=== PATIENT | female | born 1970 | race Caucasian/White ===

== ENCOUNTER → 2024-05-06 15:18 | Outpatient (CLI) | payer OTHER, SELFPAY ==
--- NOTE | 2024-05-06 | DI.MRI.S_ITS ---
PROCEDURE: MR ANKLE LT WO CON INDICATIONS: Pain in left ankle and joints of left foot TECHNIQUE: Noncontrast sagittal T1 spin echo and T2 fast spin echo with fat saturation, axial proton density fast spin echo and T2 fast spin echo with fat saturation, coronal T1 spin echo and T2 fast spin echo with fat saturation through the ankle/hindfoot. COMPARISON: [facility], CR, XR ANKLE 3+ VIEWS RIGHT, 04/26/2024, 14:47. FINDINGS: Image quality: Excellent. Bones and joints: No marrow edema. No acute fracture or dislocation. Old healed fracture involving posterior malleolus is seen. No hindfoot coalitions. No osteochondral injuries of the talar dome. Small amount of tibiotalar joint effusion is seen, no loose bodies. Medial structures: The posterior tibialis, flexor digitorum longus, and flexor hallucis longus tendons are intact. The posterior tibial neurovascular bundle appears normal within the tarsal tunnel, without extrinsic mass effect. The deltoid ligament and spring ligament are mildly thickened. Lateral structures: The anterior talofibular ligament appears thickened with intrasubstance T2 hyperintense signal. The calcaneofibular, and posterior talofibular ligaments appear intact. More superiorly, the anterior and posterior tibiofibular ligaments appear intact, as is the intermalleolar ligament. The tibiofibular syndesmosis is normal in width at 2 mm or less. The peroneus longus and brevis tendons are thickened with small amount of fluid distending tendon sheath at the level of lateral malleolus tip extending to their distal insertions. Intrasubstance T2 hyperintense signal within peroneus longus tendon along plantar aspect of midfoot is also noted. The sinus tarsi demonstrates normal fatty signal, without edema, fibrosis, or cyst formation. Visualized sinus tarsi components (cervical ligament, interosseous talocalcaneal ligament, roots of the inferior extensor retinaculum) appear normal. Anterior structures: The tibialis anterior, extensor hallucis longus, and extensor digitorum longus tendons appear intact. The dorsal talonavicular ligament appears intact. Posterior and plantar structures: Lobulated thickening of mid to distal Achilles tendon extending to its posterior calcaneal insertion with mild adjacent soft tissue edema. No Achilles tendon rupture. Medial and lateral bands of the plantar fascia are of normal thickness. No abductor digiti quinti muscle atrophy to suggest Gonzalez neuropathy. IMPRESSION: 1. Old healed posterior malleolus fracture. No acute ankle fracture or dislocation. No osteochondral injuries of talar dome. Small joint effusion, no loose bodies. 2. Low-grade medial ankle ligament sprain. 3. Low to moderate grade partial-thickness tear involving ATFL. No full-thickness ankle ligament rupture. 4. Low to moderate grade tenosynovitis and intrasubstance partial-thickness tear involving peroneus longus and brevis tendons as described above. 5. Lobulated appearance of distal Achilles tendon extending to its posterior calcaneal insertion and surrounding soft tissue edema suggestive of tendinitis. No full-thickness Achilles tendon rupture. Dictated by: Juan Manuel Danielson M.D. on 05/06/2024 at 17:58 Approved by: Juan Manuel Danielson M.D. on 05/06/2024 at 18:08
== END ==
PROVIDERS: PCP Family Medicine; Referring Provider Family Medicine; Visit Provider Family Medicine
DX: S93.492A Sprain of other ligament of left ankle, initial encounter (principal); M25.572 Pain in left ankle and joints of left foot; M25.472 Effusion, left ankle; M65.872 Other synovitis and tenosynovitis, left ankle and foot; Z87.81 Personal history of (healed) traumatic fracture
CPT/HCPCS: 73721

== ENCOUNTER → 2024-05-07 16:47 | Outpatient (CLI) | payer OTHER, SELFPAY ==
--- NOTE | 2024-05-07 16:48 | DI.MRI.S_ITS ---
PROCEDURE: MR ANKLE RT WO CON INDICATIONS: RT ANKLE SPRAIN,PERONEAL NERVE INJURY TECHNIQUE: Noncontrast sagittal T1 spin echo and T2 fast spin echo with fat saturation, axial proton density fast spin echo and T2 fast spin echo with fat saturation, coronal T1 spin echo and T2 fast spin echo with fat saturation through the ankle/hindfoot. COMPARISON: [facility], CR, XR ANKLE 3+ VIEWS RIGHT, 04/26/2024, 14:47. [facility], MR, MR ANKLE LT WO CON, 05/06/2024, 15:32. FINDINGS: Image quality: Excellent. Bones and joints: Mild edema involving mid to distal portion of calcaneus without discrete fracture line. No other area of abnormal marrow signal. No fracture or dislocation. No hindfoot coalitions. No osteochondral injuries of the talar dome. Small to moderate tibiotalar joint effusion, no loose bodies. Medial structures: The posterior tibialis tendon is mildly thickened with small amount of fluid distending tendon sheath at the level of mid to distal talus and talonavicular joint. The flexor digitorum longus, and flexor hallucis longus tendons are intact. The posterior tibial neurovascular bundle appears normal within the tarsal tunnel, without extrinsic mass effect. The deltoid ligament and spring ligament are thickened. Intrasubstance T2 hyperintense signal involving spring ligament near its calcaneal insertion is seen. Lateral structures: The anterior talofibular, calcaneofibular, and posterior talofibular ligaments appear mildly thickened. More superiorly, the anterior and posterior tibiofibular ligaments appear intact, as is the intermalleolar ligament. The tibiofibular syndesmosis is normal in width at 2 mm or less. The peroneus longus and brevis tendons are mildly thickened with small amount of fluid distending tendon sheath along mid to distal portion of calcaneus extending to their distal insertions. The sinus tarsi demonstrates normal fatty signal, without edema, fibrosis, or cyst formation. Visualized sinus tarsi components (cervical ligament, interosseous talocalcaneal ligament, roots of the inferior extensor retinaculum) appear normal. Anterior structures: The tibialis anterior, extensor hallucis longus, and extensor digitorum longus tendons appear intact. The dorsal talonavicular ligament appears intact. Posterior and plantar structures: Achilles tendon is thickened at its posterior calcaneal insertion. No Achilles tendon rupture. Medial and lateral bands of the plantar fascia are of normal thickness. No abductor digiti quinti muscle atrophy to suggest Gonzalez neuropathy. IMPRESSION: 1. Nonspecific marrow edema involving mid to distal calcaneus without discrete fracture line likely represent stress related changes versus contusion. No other area of abnormal marrow signal. No osteochondral injuries of talar dome. Small to moderate amount of joint effusion, no loose bodies. 2. Low-grade tenosynovitis involving posterior tibialis tendon near its distal insertion. 3. Low-grade tenosynovitis involving peroneus longus and brevis tendons at the level of mid to distal calcaneus extending to their distal insertions. 4. Low-grade sprain/partial-thickness tear involving medial ankle ligaments. Low-grade sprain also seen involving anterior and posterior talofibular ligaments and calcaneofibular ligament. No full-thickness ankle ligament rupture. 5. Mild distal Achilles tendinosis. No Achilles tendon rupture. Dictated by: Juan Manuel Danielson M.D. on 05/08/2024 at 10:11 Approved by: Juan Manuel Danielson M.D. on 05/08/2024 at 10:49
== END ==
LOC: MRI 16:48
PROVIDERS: PCP Family Medicine; Referring Provider Family Medicine; Visit Provider Family Medicine
DX: S93.491A Sprain of other ligament of right ankle, initial encounter (principal); S93.411A Sprain of calcaneofibular ligament of right ankle, initial encounter; S94.2 Injury of deep peroneal nerve at ankle and foot level; M65.871 Other synovitis and tenosynovitis, right ankle and foot; X58.XXXA Exposure to other specified factors, initial encounter
CPT/HCPCS: 73721

== ENCOUNTER → 2024-06-04 13:50 | Outpatient (ROUT) | payer OTHER, SELFPAY ==
[2024-06-04 13:58] LABS: Add Manual Diff / Slide Review NO; Basophils Absolute Auto 0 /uL (0-100); Basophils Percent Auto 0.5 % (0-2); Eosinophils Absolute Auto 100 /uL (0-450); Hematocrit 34.7 % (36-46); Lymphocytes Absolute Auto 1600 /uL (1100-4500); Lymphocytes Percent Auto 30.3 % (25-40); Mean Corpuscular HGB Conc 34.6 % (30-36); Mean Corpuscular Hemoglobin 30.9 PG (26-34); Mean Corpuscular Volume 89.2 fL (80-100); Monocytes Absolute Auto 300 /uL (0-900); Monocytes Percent Auto 6.3 % (3-14); Neutrophils Absolute Auto 3300 /uL (1500-7000); Neutrophils Percent Auto 60.9 % (50-75); Platelet Count 261 X10^3/uL (150-400); Red Blood Cell Count 3.89 X10^6/uL (4.0-5.2); Red Cell Distribution Width 13.4 % (11.6-14.8); White Blood Cell Count 5.4 X10^3/uL (4.5-11.0)
[2024-06-04 14:12] LABS: Alanine Aminotransferase 20 IU/L (<35); Albumin 4.6 g/dL (3.5-5.0); Albumin Globulin Ratio 1.7 (1.0-2.8); Alkaline Phosphatase 79 U/L (38-126); Aspartate Aminotransferase 26 IU/L (14-36); BUN Creatinine Ratio 16.5 (6-22); Bilirubin Total 0.6 mg/dL (0.2-1.3); Blood Urea Nitrogen 17 mg/dL (7-17); Calcium 9.5 mg/dL (8.4-10.2); Carbon Dioxide 23 mmol/L (22-32); Chloride 105 mmol/L (98-107); Estimated Glomerular Filt Rate > 60 mL/min (>60); Globulin 2.7 g/dL (1.7-4.1); Glucose 87 mg/dL (70-100); HEMOLYSIS < 15 (0-50); Sodium 139 mmol/L (137-145); Total Protein 7.3 g/dL (6.3-8.2)
[2024-06-04 14:17] LABS: Iron 62 ug/dL (37-170)
[2024-06-04 14:45] LABS: Thyroid Stimulating Hormone 2.43 uIU/mL (0.47-4.68)
== END ==
PROVIDERS: PCP Family Medicine; Visit Provider Family Medicine
DX: Z00.00 Encounter for general adult medical examination without abnormal findings (principal); I47.10 Supraventricular tachycardia, unspecified; E61.1 Iron deficiency; E55.9 Vitamin D deficiency, unspecified
CPT/HCPCS: 36415; 80053; 80299; 82306; 83540; 84443; 85025

== ENCOUNTER → 2024-06-21 08:17 | Outpatient (CLI) | payer OTHER, SELFPAY ==
--- NOTE | 2024-06-21 | DI.RAD.S_ITS ---
PROCEDURE: XR HAND LT MIN 3V INDICATIONS: LEFT HAND PAIN TECHNIQUE: 3 views of the hand(s) acquired. COMPARISON: None. FINDINGS: Bones: No fractures or dislocations. Carpal bones are normally aligned. No suspicious bony lesions. Minimal scattered arthritic IP narrowing. Soft tissues: Punctate hyperdensities overlying the proximal aspect of the 2nd digit possibly dystrophic soft tissue calcifications. IMPRESSION: No visualized acute fracture or dislocation. However, if clinical concern and/or pain persist, short interval imaging followup in 7-10 days is recommended, as occult injury cannot be definitively excluded. Dictated by: Ellie Pearson M.D. on 06/21/2024 at 13:44 Approved by: Ellie Pearson M.D. on 06/21/2024 at 13:45
--- NOTE | 2024-06-21 | DI.RAD.S_ITS ---
PROCEDURE: XR WRIST LT MIN 3V INDICATIONS: LEFT WRIST PAIN TECHNIQUE: 4 views of the wrist were acquired. COMPARISON: None. FINDINGS: Bones: No fractures or dislocations. No suspicious bony lesions. Soft tissues: No suspicious soft tissue calcifications. IMPRESSION: No visualized acute fracture or dislocation. However, if clinical concern and/or pain persist, short interval imaging followup in 7-10 days is recommended, as occult injury cannot be definitively excluded. Dictated by: Ellie Pearson M.D. on 06/21/2024 at 13:44 Approved by: Ellie Pearson M.D. on 06/21/2024 at 13:44
== END ==
PROVIDERS: PCP Family Medicine; Referring Provider Family Medicine; Visit Provider Family Medicine
DX: M79.642 Pain in left hand (principal)
CPT/HCPCS: 73110; 73130

== ENCOUNTER → 2024-07-04 15:33 | Outpatient (CLI) | payer OTHER, SELFPAY ==
--- NOTE | 2024-07-04 15:36 | DI.MRI.S_ITS ---
PROCEDURE: MR WRIST LT WO CON INDICATIONS: ULNAR WRIST/HAND PAIN AFTER FALL.. TECHNIQUE: Noncontrast coronal proton density fast spin echo and T2 fast spin echo with fat saturation; coronal 3-D gradient echo, axial T1 spin echo and T2 fast spin echo with fat saturation, sagittal T1 spin echo through the wrist. COMPARISON: [facility], CR, XR WRIST LT MIN 3V, 06/21/2024, 8:29. [facility], CR, XR HAND LT MIN 3V, 06/21/2024, 8:29. FINDINGS: Image quality: Excellent. Bones: Mild subchondral cyst formation is present at the the lunate body (3/6). The bone marrow signal is normal. There is no evidence of fracture or carpal bone osteonecrosis. There is a type 1 lunate. Joints: There is no significant osteoarthritis. There is a small amount of fluid at the distal radioulnar joint (3/5). There is no significant fluid within the radiocarpal joint or midcarpal space. Intrinsic Ligaments: The scapholunate and lunotriquetral intervals are normal. The intrinsic scapholunate and lunotriquetral ligaments are normal. Extrinsic Ligaments: The extrinsic ligaments are normal. Triangular Fibrocartilage Complex: There may be a minimal central, irregular perforation at the articular disc (3/7). The triangular fibrocartilage disc proper, distal dorsal and volar radioulnar ligaments, ulnar collateral ligament/meniscal homologue, ulnotriquetral, and ulnolunate ligaments are otherwise normal. Tendons: The flexor and extensor tendons are normal. Nerves: The median and ulnar nerves appear normal in size and signal. Other: Subcutaneous and intramuscular edema is present around the base of the 4th and 5th metacarpals, likely secondary to partial disruptions of the dorsal and volar metacarpal ligaments (3/6; 8/7). IMPRESSION: 1. Possible perforating tear at the articular disc of the triangular fibrocartilage, with a small amount of fluid at the distal radioulnar joint. If necessary, an MR wrist arthrogram could be performed for confirmation. 2. Likely traumatic, partial disruption of the dorsal and volar metacarpal ligaments between the 4th and 5th metacarpals with adjacent mild muscle strains. Please correlate with physical exam for joint laxity and possible higher grade injury. Dictated by: Nate Garduno M.D. on 07/04/2024 at 16:54 Approved by: Nate Garduno M.D. on 07/04/2024 at 17:25
== END ==
LOC: MRI 15:35
PROVIDERS: PCP Family Medicine; Referring Provider Family Medicine; Visit Provider Family Medicine
DX: M79.642 Pain in left hand (principal)
CPT/HCPCS: 73221

== ENCOUNTER → 2024-07-06 15:30 | Outpatient (CLI) | payer OTHER, SELFPAY ==
--- NOTE | 2024-07-06 15:32 | DI.MRI.S_ITS ---
PROCEDURE: MR HAND LT WO CON INDICATIONS: HAND PAIN AFTER FALL TECHNIQUE: Noncontrast coronal T1 spin echo and T2 fast spin echo with fat saturation, axial proton density fast spin echo and T2 fast spin echo with fat saturation, sagittal T1 spin echo and STIR through the hand and fingers. COMPARISON: [facility], CR, XR WRIST LT MIN 3V, 06/21/2024, 8:29. [facility], MR, MR WRIST LT WO CON, 07/04/2024, 16:19. [facility], CR, XR HAND LT MIN 3V, 06/21/2024, 8:29. FINDINGS: Image quality: Excellent. Bones: Diffuse marrow edema of the 1st distal phalanx, without definite fracture line, likely representing marrow contusion given history of trauma. Marrow edema with subchondral cystic changes at the 2nd proximal phalangeal head, favoring degenerative. No acute fracture. Interphalangeal joint(s): The accessory and proper collateral ligaments appear intact. The volar plate demonstrates normal morphology. The extensor central slips appear intact on sagittal images. Metacarpophalangeal joint(s): The accessory and proper collateral ligaments appear intact, as well as the volar plate and adjacent deep transverse metacarpal ligaments. The sagittal bands of the extensor vargas appear normal. Extensor apparatus: The central slips insert normally on the middle phalangeal base. The conjoint and terminal tendons insert normally on the distal phalangeal bases. More proximal portions of the extensor tendons also appear normal. Flexor apparatus: The flexor digitorum superficialis and profundus tendons both appear intact. All annular and cruciform pulleys appear intact, without adjacent soft tissue edema. Soft tissues: Soft tissue edema between the 4th and 5th metacarpal base, nonspecific. IMPRESSION: 1. Diffuse marrow edema of the 1st distal phalanx, likely representing marrow contusion. 2. Marrow edema with subchondral cystic changes at the 2nd proximal phalangeal head, favoring degenerative. 3. Soft tissue edema between the 4th and 5th metacarpal base, nonspecific. Dictated by: Saira Zabala M.D. on 07/08/2024 at 14:01 Approved by: Saira Zabala M.D. on 07/08/2024 at 14:11
== END ==
LOC: MRI 15:31
PROVIDERS: PCP Family Medicine; Referring Provider Family Medicine; Visit Provider Family Medicine
DX: M79.642 Pain in left hand (principal); M25.532 Pain in left wrist; M25.442 Effusion, left hand
CPT/HCPCS: 73218

== ENCOUNTER → 2025-07-17 14:30 | Outpatient (ROUT) | payer OTHER, SELFPAY ==
[2025-07-17 14:40] LABS: Add Manual Diff / Slide Review NO; Hematocrit 37.2 % (36-46); Hemoglobin 12.7 g/dL (12.0-16.0); Lymphocytes Absolute Auto 1600 /uL (1100-4500); Mean Corpuscular HGB Conc 34.1 % (30-36); Mean Corpuscular Hemoglobin 30.1 PG (26-34); Mean Corpuscular Volume 88.5 fL (80-100); Platelet Count 220 X10^3/uL (150-400)
[2025-07-17 14:49] LABS: Hemoglobin A1C% w Est Avg Glu 5.3 % (4.0-6.0)
[2025-07-17 15:36] LABS: Vitamin D 25 Hydroxy (D3) 36.0 ng/mL (30.0-100.0)
[2025-07-17 20:58] LABS: Alanine Aminotransferase 22 IU/L (<35); Albumin 4.7 g/dL (3.5-5.0); Albumin Globulin Ratio 1.6 (1.0-2.8); Alkaline Phosphatase 90 U/L (38-126); Blood Urea Nitrogen 15 mg/dL (7-17); Calcium 9.0 mg/dL (8.4-10.2); Carbon Dioxide 23 mmol/L (22-32); Chloride 106 mmol/L (98-107); Cholesterol 215 mg/dL (140-199); Estimated Glomerular Filt Rate > 60 mL/min (>60); Globulin 3.0 g/dL (1.7-4.1); Glucose 90 mg/dL (70-99); HDL Cholesterol 64 mg/dL (40-60); HEMOLYSIS < 15 (0-50); Potassium 4.0 mmol/L (3.4-5.1); Sodium 138 mmol/L (137-145); Total Protein 7.7 g/dL (6.3-8.2)
[2025-07-17 21:04] LABS: Thyroid Stimulating Hormone 2.70 uIU/mL (0.47-4.68)
== END ==
PROVIDERS: PCP Family Medicine; Visit Provider Family Medicine
DX: Z00.00 Encounter for general adult medical examination without abnormal findings (principal); E16.2 Hypoglycemia, unspecified; E55.9 Vitamin D deficiency, unspecified; I47.19 Other supraventricular tachycardia
CPT/HCPCS: 80053; 80299; 82306; 82465; 83036; 83718; 84443; 85025